=== PATIENT | female | born 1940 | race Caucasian/White ===

== ENCOUNTER 2019-06-06 18:30 | Emergency (ER) | payer MEDICARE, OTHER ==
[~2019-06-06] VITALS: Ht 172.7 cm; Wt 90.9 kg
[2019-06-06] MEDS ORDERED: LIDOCAINE/EPI 2% 1:100,00 (XYLOCAINE) 20 ML VIAL ONE (18:40)
[2019-06-06] MEDS ORDERED: L.E.T. SYRINGE 5 ML ONE (18:41)
[2019-06-06] MEDS ORDERED: L.E.T. SYRINGE 5 ML TOP STA (18:47)
--- NOTE | 2019-06-06 18:47 | ED Fall/Injury ---
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 She denies losing consciousness. She has no nausea or vomiting. She denies any change in her vision. she states her last tetanus was more than 5 years ago. She does have some bruising to the palms of hands from where she tried to catch herself. There is also an abrasion to her left knee. She is able to walk. She again mainly complains of pain to the left face and head where she has a l aceration over the left eyebrow. She denies taking any blood thinners. Allergies and Home Medications Allergies Coded Allergies: Penicillins (Verified Allergy, Severe, Anaphylaxis, 06/06/19) Patient Home Medication List Home Medication List Reviewed: Yes Review of Systems Review of Systems Constitutional: No chills, No dizziness, No fever, No malaise Eyes: Denies Blindness, Denies Blurred Vision, Denies Drainage, Denies Foreign Body Sensation, Denies Photophobia, Denies Tunnel Vision Ears, Nose, Mouth, Throat: denies ear pain, denies ear discharge, denies nose pain, denies nose discharge, denies epistaxis, denies mouth swelling, denies loose teeth, denies throat pain Respiratory: No cough, No hemoptysis, No short of breath Cardiovascular: No chest pain Gastrointestinal: No nausea, No vomiting Genitourinary: no symptoms reported Musculoskeletal: other (bruising and abrasion to bilateral hands, left knee. ) Skin: other (bruising and abrasions to bilateral hands and left knee) Psychiatric/Neurological: Headache (left sided where she has laceration and contusion) Past Xidhgic-Lbqctp-Duciod Hx Past Med/Social Hx: Reviewed Nursing Past Med/Soc Hx Patient Social History Recent Foreign Travel: No Contact w/Someone Who Travel: No Past Medical History Surgeries: No Physical Exam Vital Signs Vital Signs - First Documented 06/06/19 18:30 Temp 37.1 Pulse 79 Resp 14 B/P (MAP) 188/80 (116) Pulse Ox 100 O2 Delivery Room Air Capillary Refill : Height, Weight, BMI Height: '" Weight: lbs. oz. kg; BMI Method: General Appearance: WD/WN, mild distress HEENT: PERRL/EOMI, TMs normal, pharynx normal Neck: non-tender, full range of motion, supple, normal inspection Cardiovascular: normal peripheral pulses, regular rate, rhythm Respiratory: chest non-tender, lungs clear, normal breath sounds Gastrointestinal: normal bowel sounds, soft, no pulsatile mass Extremities: normal range of motion, normal capillary refill, other (mild tenderness to bilateral palms and to left knee where she has abrasions and bruising from falling. 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 laceration left eyebrow) Procedures/Interventions Wound Location: Face (left eyebrow) Wound Length (cm): 3.1 Wound's Depth, Shape: sub Q Wound Explored: clean Anesthesia: 1% Lidocaine Volume Anesthetic (ccs): 10 Suture: Prolene Suture Size: 5-0 Number of Sutures: 10 Layer Closure?: 1 Progress After obtaining verbal consent from the patient the wound was anesthetized with topical let. When I went back to work on the wound after having a delayed start time to close the wound due to multiple critical patients in the ER, I anesthetized it further with 1% plain lidocaine. I then cleaned the wound using chlorhexidine surgical scrub soap with sterile water. There are no foreign bodies seen on direct visual exam. The wound was then closed by approximating the wound edges using 5-0 Prolene. A total of 10 simple interrupted sutures were placed. The patient tolerated this well without any immediate complications. Counseled on follow-up and return precautions and advised to have the stitches out in 5-7 days. Progress/Results/Core Measures Results/Orders My Orders Orders - KEITH ALDANA MD Lidocaine/Epi 2% 1:100,000 (Xylocaine/Ep (06/06/19 18:40) Let Solution (Let Solution) (06/06/19 18:41) Let Solution (Let Solution) (06/06/19 18:47) Suture Set At Bedside (06/06/19 18:48) Lidocaine 1% Inj 20 Ml (Xylocaine 1% Inj (06/06/19 19:15) Dipht,Pertuss(Acell),Tet Adult (Boostrix (06/06/19 19:15) Medications Given in ED Current Medications Medications Dose Ordered Sig/Terese Route Start Time Stop Time Status Last Admin Dose Admin Diphtheria/ Tetanus/Acell Pertussis 0.5 ml ONCE ONCE IM 06/06/19 19:15 06/06/19 19:16 DC 06/06/19 20:20 0.5 ML Lidocaine HCl 20 ml ONCE ONCE INJ 06/06/19 19:15 06/06/19 19:16 DC 06/06/19 20:20 20 ML Lidocaine/ Epinephrine 20 ml STK-MED ONCE .ROUTE 06/06/19 18:40 06/06/19 18:45 DC 06/06/19 19:03 20 ML Vital Signs/I&O 06/06/19 06/06/19 18:30 22:08 Temp 37.1 36.4 Pulse 79 74 Resp 14 16 B/P (MAP) 188/80 (116) 165/75 Pulse Ox 100 96 O2 Delivery Room Air Progress Progress Note : Progress Note As the patient did not have any loss of consciousness and was not on any blood thinners no imaging was ordered. The wound was initially anesthetized with some topical let but then further numbed using 1% plain lidocaine just prior to cleaning and closing the wound. The patient tolerated the wound closure well without any immediate complication. She did have a lengthy stay in the emergency department due to multiple critical patients in the ER taking my time before I could come back to work on her wound Departure Impression Primary Impression: Laceration of left eyebrow without complication Qualified Codes: S01.112A - Laceration without foreign body of left eyelid and periocular area, initial encounter Additional Impressions: Contusion of left hand, initial encounter Contusion of right hand, initial encounter Fall Qualified Codes: W19.XXXA - Unspecified fall, initial encounter Facial contusion Qualified Codes: S00.83XA - Contusion of other part of head, initial encounter Disposition: 01 HOME, SELF-CARE Condition: Stable Departure-Patient Inst. Decision time for Depature: 22:03 Referrals: ARABELLA ZURITA MD (PCP/Family) Primary Care Physician Patient Instructions: Laceration Repair With Stitches (DC), Diphtheria and Tetanus Toxoids, and Acellular Pertussis Vaccine, Contusion (DC), Wound Care (DC) Add. Discharge Instructions: Keep wound clean and dry for 24 hours then may wash with soap and water and apply antibiotic ointment 2-3 times a day to help with the healing of the wound. Stitches should be removed in 5 to 7 days. Check with clinic for continued problems/concerns. Ice 15-20 minutes every few hours to help with swelling and bruising. Try to have your head elevated or sleep in chair for the first night or two to help with the swelling and bruising of the laceration on your head and face. KEITH ALDANA MD Jun 06, 2019 18:47
[2019-06-06] MEDS ORDERED: LIDOCAINE 1% INJ 20 ML 20 ML VIAL INJ ONE (19:15)
[2019-06-06] MEDS ORDERED: TETANUS,DIPTH,PERTUSS P/F (BOOSTRIX) 0.5 ML VIAL IM ONE (19:15)
--- NOTE | 2019-06-06 20:16 | NUR ---
Conset for Boostrix signed at this time by patient
[2019-06-06 22:08] VITALS: BP 165/75
== END 2019-06-06 22:08 | disposition home or self-care (01) ==
LOC: ER FS 18:33
DX: S01.112A Laceration without foreign body of left eyelid and periocular area, initial encounter (principal); S60.221A Contusion of right hand, initial encounter; S60.222A Contusion of left hand, initial encounter; S00.83XA Contusion of other part of head, initial encounter; Z23 Encounter for immunization; Z88.0 Allergy status to penicillin; W01.198A Fall on same level from slipping, tripping and stumbling with subsequent striking against other object, initial encounter; Y92.480 Sidewalk as the place of occurrence of the external cause
CPT/HCPCS: 90715; 99284

== ENCOUNTER 2019-06-11 15:15 | Emergency (ER) | payer MEDICARE ==
[~2019-06-11] VITALS: Ht 170.2 cm; Wt 75.0 kg
[2019-06-11 16:00] VITALS: BP 130/70
== END 2019-06-11 16:00 | disposition home or self-care (01) ==
LOC: EDUNIT# 15:15 → ER FS 15:16
DX: S01.112D Laceration without foreign body of left eyelid and periocular area, subsequent encounter (principal); X58.XXXD Exposure to other specified factors, subsequent encounter

== ENCOUNTER 2020-04-17 13:33 | Emergency (ER) | payer MEDICARE ==
--- NOTE | 2020-04-17 13:52 | ED General ---
General Chief Complaint: Fever-Adult/Adol Stated Complaint: COVID+; GEN WEAKNESS Nursing Triage Note: Has been sick for several weeks. States she was tested for COVID on 03/31 and was negative, but tested positive. Temp was 103 at home this morning. Is extremely tired and has lost appetite, sense of smell and taste, has intermittent cough and body aches. Nursing Sepsis Screen: No Definite Risk Source of Information: Patient Exam Limitations: No Limitations History of Present Illness Date Seen by Provider: Apr 17, 2020 Time Seen by Provider: 13:42 Initial Comments The patient is a pleasant 79-year-old female who states that she has been "sick for a few weeks. She says that she and her were tested for COVID on 03/31 and that her tested positive that she was negative. Her temperature at home today was 103F and she is extremely fatigued and says that she has lost her sense of taste and smell. She's been having some intermittent body aches and a mild cough as well but denies any shortness of breath or difficulty breathing. She is alert and oriented 4, calm, and appears to be in no distress this time. She denies chest pain, abdominal pain, vomiting, syncope, palpitations, hemoptysis, diarrhea, headache, neck pain or neck stiffness. Timing/Duration: Other (2-3 weeks) Severity: Moderate Associated Systoms: Cough, Fever/Chills, Malaise, Weakness Allergies and Home Medications Allergies Coded Allergies: Penicillins (Verified Allergy, Severe, Anaphylaxis, 06/06/19) Patient Home Medication List Home Medication List Reviewed: Yes Review of Systems Review of Systems Constitutional: chills, fever, malaise, weakness EENTM: other (loss of taste/smell) Respiratory: cough Cardiovascular: no symptoms reported Gastrointestinal: no symptoms reported Genitourinary: no symptoms reported Musculoskeletal: no symptoms reported Skin: no symptoms reported Psychiatric/Neurological: No Symptoms Reported Hematologic/Lymphatic: No Symptoms Reported Immunological/Allergic: no symptoms reported All Other Systems Reviewed Negative Unless Noted: Yes Past Bfbjucx-Zfzsir-Awmcrw Hx Past Med/Social Hx: Reviewed Nursing Past Med/Soc Hx Patient Social History 2nd Hand Smoke Exposure: No Recent Foreign Travel: No Contact w/Someone Who Travel: No Recent Infectious Disease Expo: Yes ( positive for COVID 03/31) Recent Hopitalizations: No Seasonal Allergies Seasonal Allergies: No Past Medical History Surgeries: No Hysterectomy, Orthopedic, Thyroidectomy Respiratory: No Cardiac: No Neurological: No Genitourinary: No Gastrointestinal: No Musculoskeletal: No Endocrine: Yes Hypothyroidsim HEENT: No Cancer: No Psychosocial: No Integumentary: No Physical Exam Vital Signs Vital Signs - First Documented 04/17/20 13:44 Temp 37.4 Pulse 79 Resp 18 O2 Delivery Room Air Capillary Refill : Less Than 3 Seconds Height, Weight, BMI Height: '" Weight: lbs. oz. kg; 30.00 BMI Method:Actual General Appearance: No Apparent Distress, WD/WN Eyes: Bilateral Eye Normal Inspection, Bilateral Eye PERRL, Bilateral Eye EOMI HEENT: PERRL/EOMI, TMs Normal, Normal ENT Inspection, Pharynx Normal Neck: Full Range of Motion, Normal Inspection, Non Tender, Supple Respiratory: Lungs Clear, Normal Breath Sounds, No Accessory Muscle Use, No Respiratory Distress Cardiovascular: Regular Rate, Rhythm, No Edema, No JVD, Normal Peripheral Pulses Gastrointestinal: Normal Bowel Sounds, No Pulsatile Mass, Soft Extremity: Normal Capillary Refill, Normal Range of Motion, No Calf Tenderness, No Pedal Edema Neurologic/Psychiatric: Alert, Oriented x3, No Motor/Sensory Deficits, Normal Mood/Affect Skin: Normal Color, Warm/Dry Focused Exam Lactate Level 04/17/20 15:17: Lactic Acid Level 1.11 Lactic Acid Level Laboratory Tests Test 04/17/20 15:17 Lactic Acid Level 1.11 MMOL/L (0.50-2.00) Procedures/Interventions Suture Size: 5-0 Progress/Results/Core Measures Suspected Sepsis Recent Fever Within 48 Hours: Yes Infection Criteria Present: Suspected New Infection New/Unexplained Altered Menta: No Sepsis Screen: No Definite Risk SIRS Temperature: Pulse: 79 Respiratory Rate: 18 Laboratory Tests 04/17/20 13:57: White Blood Count 5.3 Blood Pressure / Mean: 04/17/20 15:17: Lactic Acid Level 1.11 Laboratory Tests 04/17/20 13:57: Creatinine 3.46H, Platelet Count 136, Total Bilirubin 0.4 Results/Orders Lab Results Laboratory Tests Test 04/17/20 13:57 04/17/20 14:00 04/17/20 15:17 Range/Units White Blood Count 5.3 4.3-11.0 10^3/uL Red Blood Count 4.66 4.35-5.85 10^6/uL Hemoglobin 13.6 11.5-16.0 G/DL Hematocrit 39 35-52 % Mean Corpuscular Volume 83 80-99 FL Mean Corpuscular Hemoglobin 29 25-34 PG Mean Corpuscular Hemoglobin Concent 35 32-36 G/DL Red Cell Distribution Width 11.7 10.0-14.5 % Platelet Count 136 130-400 10^3/uL Mean Platelet Volume 11.6 H 7.4-10.4 FL Immature Granulocyte % (Auto) 1 % Neutrophils (%) (Auto) 82 H 42-75 % Lymphocytes (%) (Auto) 10 L 12-44 % Monocytes (%) (Auto) 7 0-12 % Eosinophils (%) (Auto) 0 0-10 % Basophils (%) (Auto) 0 0-10 % Neutrophils # (Auto) 4.3 1.8-7.8 X 10^3 Lymphocytes # (Auto) 0.5 L 1.0-4.0 X 10^3 Monocytes # (Auto) 0.4 0.0-1.0 X 10^3 Eosinophils # (Auto) 0.0 0.0-0.3 10^3/uL Basophils # (Auto) 0.0 0.0-0.1 10^3/uL Immature Granulocyte # (Auto) 0.0 0.0-0.1 10^3/uL Sodium Level 127 L 135-145 MMOL/L Potassium Level 3.3 L 3.6-5.0 MMOL/L Chloride Level 92 L 98-107 MMOL/L Carbon Dioxide Level 23 21-32 MMOL/L Anion Gap 12 5-14 MMOL/L Blood Urea Nitrogen 53 H 7-18 MG/DL Creatinine 3.46 H 0.60-1.30 MG/DL Estimat Glomerular Filtration Rate 13 BUN/Creatinine Ratio 15 Glucose Level 107 H 70-105 MG/DL Calcium Level 12.2 H 8.5-10.1 MG/DL Corrected Calcium 12.5 H 8.5-10.1 MG/DL Magnesium Level 1.3 L 1.6-2.4 MG/DL Total Bilirubin 0.4 0.1-1.0 MG/DL Aspartate Amino Transf (AST/SGOT) 55 H 5-34 U/L Alanine Aminotransferase (ALT/SGPT) 30 0-55 U/L Alkaline Phosphatase 60 40-136 U/L Troponin I < 0.30 <0.30 NG/ML C-Reactive Protein 10.66 H <0.50 MG/DL Total Protein 6.6 6.4-8.2 GM/DL Albumin 3.6 3.2-4.5 GM/DL Lactic Acid Level 1.11 0.50-2.00 MMOL/L My Orders Orders - AMANDA ARMSTRONG DO Cbc With Automated Diff (04/17/20 13:46) Comprehensive Metabolic Panel (04/17/20 13:46) Chest 1 View Ap/Pa Only (04/17/20 13:46) Covid 19 Inhouse Test (04/17/20 13:46) Ns Iv 1000 Ml (Sodium Chloride 0.9%) (04/17/20 14:00) Chair Car Driver (04/17/20 13:46) Continuous Pulse Ox (04/17/20 13:46) Troponin I Fs (04/17/20 13:46) Ekg Tracing (04/17/20 13:46) Magnesium (04/17/20 13:46) Acetaminophen Tablet (Tylenol Tablet) (04/17/20 14:00) Crp Fs (04/17/20 13:53) Coronavirus Sars-Cov-2 So 2018 (04/17/20 14:26) Potassium Chloride (Tablet) (K Dur Table (04/17/20 14:45) Ns Iv 1000 Ml (Sodium Chloride 0.9%) (04/17/20 15:00) Ceftriaxone For Iv Use (Rocephin For I (04/17/20 15:00) Azithromycin Injection (Zithromax Inject (04/17/20 15:00) Blood Culture (04/17/20 15:05) Lactic Acid Analyzer (04/17/20 15:05) Blood Culture (04/17/20 15:09) Magnesium 1 Gm/100 Ml Ivpb (Magnesium Cantrell (04/17/20 15:45) Medications Given in ED Current Medications Medications Dose Ordered Sig/Terese Route Start Time Stop Time Status Last Admin Dose Admin Azithromycin 500 mg/Sodium Chloride 250 ml @ 250 mls/hr ONCE ONCE IV 04/17/20 15:00 04/17/20 15:59 DC 04/17/20 15:28 250 MLS/HR Ceftriaxone Sodium 1000 mg/ Sterile Water 10 ml @ 200 mls/hr ONCE ONCE IV 04/17/20 15:00 04/17/20 15:02 DC 04/17/20 15:27 200 MLS/HR Potassium Chloride 40 meq ONCE ONCE PO 04/17/20 14:45 04/17/20 14:46 DC 04/17/20 14:59 40 MEQ Vital Signs/I&O 04/17/20 13:44 Temp 37.4 Pulse 79 Resp 18 B/P (MAP) O2 Delivery Room Air Capillary Refill : Less Than 3 Seconds Progress Note : Progress Note @1450 - Lab and imaging results discussed with patient and her and they understand that the patient required admission. The preference is [facility] [place]. I discussed the case with Dr. Le that she is unable to accept transfer because they do not have nephrology available. They're next choice was [place] or [facility] in [place] both of these hospitals around hospital-wide diversion. @1515 - Their next choice is a hospital in the [facility]. ([facility] was called and they will call back with bed availability). @1535 - [facility] (where [facility] admits [facility] patients) is on diversion. @1542 - Dr. Tobias Ochoa at [facility] accepts the transfer. ECG Comment @1405 - Normal sinus rhythm, rate of 76, left axis deviation present, no acute ischemic findings noted, no STEMI, reviewed and interpreted by myself Diagnostic Imaging Diagonstic Imaging: Xray Plain Films/CT/US/NM/MRI: chest Comments [facility]. [place], [place] NAME: ERASMO FABIAN MED REC#: [id number] PT STATUS: REG ER : 1940 PHYSICIAN: AMANDA ARMSTRONG DO ADMIT DATE: 04/17/20/ER FS Draft Date of Exam:04/17/20 CHEST 1 VIEW AP/PA ONLY INDICATION: Fever. No prior examination available for comparison. FINDINGS: There is cardiomegaly. There is patchy right basilar infiltrate. No pleural effusion or pneumothorax. Mediastinum is unremarkable. IMPRESSION: Patchy right basilar infiltrate. Mild cardiomegaly. Dictated on workstation # [id number] Dict: 04/17/20 1421 Trans: 04/17/20 1425 [facility] [id number] Interpreted by: ANURADHA MILES MD Electronically signed by: Departure Impression Primary Impression: Acute kidney injury Additional Impressions: Hyponatremia Hypokalemia Hypercalcemia CRP elevated Hypomagnesemia Suspected COVID-19 virus infection Disposition: 02 XFER SHT-TRM HOSP Condition: Stable Transfer Transfer Reason: Exceeds level of care Time Spoke to Accepting Phy: 16:[address] Marlys Ochoa accepts the transfer to [facility]. Transfer Time: 16:17 Transfer Facility: [facility] Method of Transfer: EMS Departure-Patient Inst. Referrals: ARABELLA ZURITA MD (PCP/Family) Primary Care Physician AMANDA ARMSTRONG DO Apr 17, 2020 13:52
[2020-04-17] MEDS ORDERED: NS IV 1000 ML 1,000 ML IV SCH ×2 (14:00→15:00)
[2020-04-17] MEDS ORDERED: ACETAMINOPHEN 500 MG TAB (TYLENOL) PO ONE (14:00)
[2020-04-17 14:11] LABS: HEMOGLOBIN 13.6 G/DL (11.5-16.0); MEAN CORPUSCULAR HEMOGLOBIN 29 PG (25-34); WHITE BLOOD COUNT 5.3 10^3/uL (4.3-11.0)
[2020-04-17 14:12] LABS: BASOPHILS % (AUTO) 0 % (0-10); EOSINOPHILS % (AUTO) 0 % (0-10); HEMATOCRIT 39 % (35-52); LYMPHOCYTES % (AUTO) 10 % (12-44); MEAN CORPUSCULAR HGB CONC 35 G/DL (32-36); MEAN CORPUSCULAR VOLUME 83 FL (80-99); MEAN PLATELET VOLUME 11.6 FL (7.4-10.4); MONOCYTES % (AUTO) 7 % (0-12); NEUTROPHILS % (AUTO) 82 % (42-75); PLATELET COUNT 136 10^3/uL (130-400)
[2020-04-17 14:13] LABS: LYMPHOCYTES # (AUTO) 0.5 X 10^3 (1.0-4.0); MONOCYTES # (AUTO) 0.4 X 10^3 (0.0-1.0); NEUTROPHILS # (AUTO) 4.3 X 10^3 (1.8-7.8)
--- NOTE | 2020-04-17 14:20 | NUR ---
Call to patient's as ER receiving a call from [facility] that he is upset he can not come into ER and has no update. Pt permits staff to update. Spouse, Rowdy, notified patient arrival into ER registration area upon arriving to [facility] should include notifying that he was COVID positive on 03/31/20 testing and she was negative testing that day but progressively worsening sx. The spouse notified that a work up was just started that takes time to get patient settled, IV started, labs drawn, swabbed for COVID, EKG, vitals, and Dr into room placing the orders. Her nurse has been at bedside since receiving pt from the waiting area and attempting to get history "I am just so tired and do not want to eat." Numerous questions being asked with vague responses and trying to get a clear history by her with Dr. Pt's spouse wants to know what is the plan and how much longer in ER and still discussing the wanting to come into ER. Reported next update about 1500 to determine if everything back and Dr has a medical determination. Reassured patient is doing fine and resting. Explained the policy is written per [facility] since COVID for no ER visitors in all our facilities and that numerous hospitals we have shipped patients to have no ER/inpatient visitors also r/t to high risk of COVID exposure and carriers. states an apology and asks just what does ER expect him to do? Spouse was given options all our visitors are told. You may wait in car till work up disposition decided or may return home for a call to update. Pt's spouse remaining in parking lot.
--- NOTE | 2020-04-17 14:25 | Diagnostic Imaging Report ---
INDICATION: Fever. No prior examination available for comparison. FINDINGS: There is cardiomegaly. There is patchy right basilar infiltrate. No pleural effusion or pneumothorax. Mediastinum is unremarkable. IMPRESSION: Patchy right basilar infiltrate. Mild cardiomegaly. Dictated by: Dictated on workstation # [id number]
[2020-04-17 14:31] LABS: CHLORIDE 92 MMOL/L (98-107); POTASSIUM 3.3 MMOL/L (3.6-5.0); SODIUM 127 MMOL/L (135-145)
[2020-04-17 14:32] LABS: ALANINE AMINOTRANSFERASE 30 U/L (0-55); ALKALINE PHOSPHATASE 60 U/L (40-136); BILIRUBIN,TOTAL 0.4 MG/DL (0.1-1.0); BUN/CREATININE RATIO 15; CALCIUM 12.2 MG/DL (8.5-10.1); CARBON DIOXIDE 23 MMOL/L (21-32); CREATININE SERUM 3.46 MG/DL (0.60-1.30); GFR ESTIMATED 13; GLUCOSE 107 MG/DL (70-105); MAGNESIUM 1.3 MG/DL (1.6-2.4); TOTAL PROTEIN 6.6 GM/DL (6.4-8.2)
[2020-04-17 14:33] LABS: ALBUMIN 3.6 GM/DL (3.2-4.5)
[2020-04-17] MEDS ORDERED: KCL 20 MEQ TAB (K-DUR) PO ONE (14:45)
[2020-04-17] MEDS ORDERED: AZITHROMYCIN INJECTION 500 MG in NS (IVPB) 250 ML IV ONE (15:00)
[2020-04-17] MEDS ORDERED: cefTRIAXone FOR IV USE 1,000 MG in WATER (STERILE) FOR INJECTION 10 ML IV ONE (15:00)
--- NOTE | 2020-04-17 15:10 | NUR ---
Call to update patient's spouse as Dr Ulloa spoke with [facility] and not accepted r/t kidney injury noted on labs and preferring a tertiary facility with nephrology services. Pt desired [facility] #1) [facility] or #2) [facility]. spoke with both facilities and on diversion of no bed available. Spouse states lets try [facility] or [facility]. Explained the lack of specialty services as they are [facility] not equipped for this. The patient and her spouse are now acknowledging the plan is to call north into until finding an available bed in hospital for her specialist requirement. Will advise when bed accepatance.
--- NOTE | 2020-04-17 16:00 | NUR ---
Pt's spouse has returned call and wants update. Again reviewed all the hospitals in that have been contacted and on diversion. [facility]. Pt's spouse states he sure thinks he should come in and just get her and drive her himself somewhere. Spouse was advised pt cannot be released to [facility] as not stable for private car transport. Spouse states, "Did I misunderstand or did you state you tried [facility]?" Explained that [facility] was not a higher level facility to transfer to and they have no specialist and not the appropriate staff for this per Dr Hancock the Hospitalist. Request to please call him back TASHI and let him know if he can go into their facility that we find.
[2020-04-17] MEDS: MAGNESIUM 1 GM/100 ML IVPB 100 ML IV SCH ×2 (16:11→17:13)
--- NOTE | 2020-04-17 16:35 | NUR ---
[facility] crew called [facility] transfer crew stating they will need them to transfer patient to [facility]. They reported they accept and will arrive in approx 45 min.
--- NOTE | 2020-04-17 16:50 | NUR ---
Pt's was notified of location [facility] and room number. Reviewed the visitation policy is [id number] and he will not be able to get in to see her tonight. He can not enter ED to visit but we will suly when transfer crew arrives to picker box operator and let him saw hi at the ambulance door when she departs. It is raining hard and we will call when he is safe to enter the EMS bay when she is loading.
[2020-04-17 18:30] VITALS: BP 122/55
--- NOTE | 2020-04-19 09:46 | NUR ---
Notified BRIONNA Barrera at [facility] of positive COVID test.
== END 2020-04-17 18:30 | disposition short-term general hospital (02) ==
LOC: EDUNIT# 13:33 → ER FS 13:36
DX: N17.9 Acute kidney failure, unspecified (principal); E87.1 Hypo-osmolality and hyponatremia; E87.6 Hypokalemia; E83.52 Hypercalcemia; R79.82 Elevated C-reactive protein (CRP); E83.42 Hypomagnesemia; U07.1 COVID-19; Z88.0 Allergy status to penicillin
CPT/HCPCS: 36415; 71045; 80053; 83605; 83735; 84484; 85025; 86141; 87040; 93005; 99284; U0002; 87635